=== PATIENT | female | born 1980 | race Caucasian/White ===

== ENCOUNTER 2020-07-14 16:00 | Emergency (ER) | payer SELFPAY ==
[2020-07-14 17:04] VITALS: BP 119/70; PULSE 110; RESP 20; TEMP 37; O2SAT 100; BMI 58.7
== END 2020-07-14 20:24 | disposition left against medical advice (07) ==
PROVIDERS: Emergency Provider Emergency Medicine
DX: R10.9 Unspecified abdominal pain (principal); Z87.59 Personal history of other complications of pregnancy, childbirth and the puerperium
CPT/HCPCS: 99282